=== PATIENT | female | born 1965 | race Caucasian/White ===

== ENCOUNTER 2016-11-04 10:38 | Emergency (ER) | payer OTHER ==
[2016-11-04 10:50] VITALS: BP 119/77
--- NOTE | 2016-11-04 11:13 | ED Physician Documentation ---
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 - Present Medications Home Medications: Ambulatory Orders Medication Instructions Recorded Confirmed Minocycline [Minocycline HCl] 100 mg PO DAILY 06/17/13 11/04/16 Acyclovir 0 mg DAILY 11/04/16 11/04/16 - Allergies Allergies/Adverse Reactions: Allergies Allergy/AdvReac Type Severity Reaction Status Date / Time Sulfa (Sulfonamide Allergy Rash Verified 11/04/16 10:48 Antibiotics) - Social History Does the pt smoke?: No Smoking Status: Never smoker Does the pt drink ETOH?: Yes Does the pt have substance abuse?: No PD ED PE NORMAL - Vitals Vital signs reviewed: Yes - Extremities Extremities: Other (distal 5th MT mild TTP, prox L 5th toe TTP and bruised, less tender distal toe, MSV intact) Results - Vitals Vitals: Vital Signs - 24 hr 11/04/16 10:42 Temperature 36.9 C Heart Rate 81 Respiratory 18 Rate Blood Pressure 119/77 O2 Saturation 100 Oxygen O2 Source Room air - Rads (name of study) toes Radiology: See rad report (prox 5th toe fx) Departure - Departure Disposition: 01 Home, Self Care Clinical Impression: Toe fracture, left Qualifiers: Encounter type: initial encounter Toe: unspecified toe Fracture type: closed Fracture alignment: nondisplaced Qualified Code(s): S92.912A - Unspecified fracture of left toe(s), initial encounter for closed fracture Condition: Good Instructions: ED Fx Toe Closed Follow-Up: Larisa Remy PA-C [Primary Care Provider] - Comments: Your did break your toe. Recommend arturo taping the next toe and using crutches to relieve the weight bearing stress. Motrin and ice as needed for the pain
--- NOTE | 2016-11-04 13:25 | XRAY Preliminary Report ---
Exam: XR Foot 3 View LT IMPRESSION: Fifth proximal phalangeal fracture. [facility] SITE ID: [id number]
--- NOTE | 2016-11-04 13:43 | XRAY Report ---
EXAM: LEFT FIFTH TOE RADIOGRAPHY EXAM DATE: 11/04/2016 12:12 PM. CLINICAL HISTORY: Left proximal fifth toe and distal fifth metatarsal injury. COMPARISON: None. TECHNIQUE: 4 views. FINDINGS: Bones: Acute oblique fracture involving the proximal half fifth proximal phalanx with 1 mm distractio n, no angulation. Joints: Normal. No subluxations. Soft Tissues: Edema adjacent to the fracture. IMPRESSION: Fifth proximal phalangeal fracture. [facility] Referring Provider Line: [phone] SITE ID: [id number]
== END 2016-11-04 13:56 | disposition home or self-care (01) ==
LOC: ED 10:38
DX: S92.912A Unspecified fracture of left toe(s), initial encounter for closed fracture (principal); W22.8XXA Striking against or struck by other objects, initial encounter; Y99.0 Civilian activity done for income or pay
CPT/HCPCS: 1040M; 99283

== ENCOUNTER 2018-03-11 07:38 | Outpatient (CLI) | payer OTHER ==
[2018-03-11 07:59] LABS: BASOPHILS # (AUTO) 0.1 10^3/uL (0.0-0.1); EOSINOPHILS # (AUTO) 0.2 10^3/uL (0.0-0.7); EOSINOPHILS % (AUTO) 2.9 %; HGB - HEMOGLOBIN 13.6 g/dL (12.0-16.0); LYMPHOCYTES # (AUTO) 2.2 10^3/uL (1.5-3.5); LYMPHOCYTES % (AUTO) 35.6 %; MEAN CORPUSCULAR HEMOGLOBIN 30.1 pg (27.0-31.0); MEAN CORPUSCULAR HGB CONC 33.2 g/dL (32.0-36.0); MEAN CORPUSCULAR VOLUME 90.9 fL (81.0-99.0); MEAN PLATELET VOLUME 7.3 fL (7.9-10.8); MONOCYTES # (AUTO) 0.5 10^3/uL (0.0-1.0); MONOCYTES % (AUTO) 8.1 %; NEUTROPHILS # (AUTO) 3.1 10^3/uL (1.5-6.6); NEUTROPHILS % (AUTO) 51.4 %; PLT - PLATELET COUNT 424 10^3/uL (130-450); RED BLOOD COUNT 4.52 10^6/uL (4.20-5.40); RED CELL DISTRIBUTION WIDTH 13.5 % (12.0-15.0); WHITE BLOOD COUNT 6.1 x10^3/uL (4.8-10.8)
[2018-03-11 08:13] LABS: CHOL/HDL RATIO 3.2 (<4.4); CHOLESTEROL 267 mg/dL; GLUCOSE,FASTING 95 mg/dL (70-100); HDL CHOLESTEROL 84 mg/dL; LDL CHOLESTEROL,CALCULATED 170 mg/dL; VLDL CHOLESTEROL 13 mg/dL
== END 2018-03-11 07:39 | disposition home or self-care (01) ==
LOC: LAB 07:38
PROVIDERS: ATTEND Registered Nurse
DX: Z01.419 Encounter for gynecological examination (general) (routine) without abnormal findings (principal)
CPT/HCPCS: 36415; 80061; 82947; 83721; 84443; 85025

== ENCOUNTER 2018-11-08 11:02 | Emergency (ER) | payer OTHER ==
[2018-11-08] MEDS ORDERED: ASPIRIN CHEW 81 MG TABLET PO STA (11:41)
--- NOTE | 2018-11-08 11:43 | ED Physician Documentation ---
History of Present Illness - Stated complaint Stated Complaint: CHEST TIGHTENING/LT SIDE NUMBNESS - Chief complaint Chief Complaint: Cardiac - Additonal information Additional information: This is a 53-year-old female with a history of hyperlipidemia who presents with some chest discomfort. Patient states that last night around 1 AM she woke up and she had some chest discomfort on the left lateral chest, which was pressure- like. She also has some tingling down her left arm. She denies shortness of breath, cough, fever. She denies pleuritic pain or pain when she breathes in deeply. She is never had any cardiac history, she has never had a stress test or catheterization. No leg swelling, no hemoptysis. She is not diabetic, is a non-smoker, denies family history of cardiac disease and age less than 65. The pain is currently mild in severity, and worse with certain movements. She has felt that her left trapezius has been tight lately. Review of Systems Constitutional: denies: Fever Cardiac: reports: Chest pain / pressure. 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 - Present Medications Home Medications: Ambulatory Orders Medication Instructions Recorded Confirmed Minocycline [Minocycline HCl] 100 mg PO DAILY 06/17/13 11/04/16 RX: Acyclovir 0 mg DAILY 11/04/16 11/04/16 - Allergies Allergies/Adverse Reactions: Allergies Allergy/AdvReac Type Severity Reaction Status Date / Time Sulfa (Sulfonamide Allergy Rash Verified 11/08/18 11:16 Antibiotics) - Social History Does the pt smoke?: No Smoking Status: Never smoker Does the pt drink ETOH?: Yes Does the pt have substance abuse?: No PD ED PE NORMAL - Vitals Vital signs reviewed: Yes - General General: Alert and oriented X 3, No acute distress - HEENT HEENT: PERRL - Neck Neck: Supple, no meningeal sign, Other (Mild left trapezius tenderness to palpation. No midline tenderness.) - Cardiac Cardiac: RRR, No murmur - Respiratory Respiratory: Clear bilaterally - Abdomen Abdomen: Soft, Non tender, Non distended - Derm Derm: Warm and dry - Extremities Extremities: No deformity, Other (SILT over Bilateral lower extremities. 5 out of 5 strength with Bilateral hand squeeze, finger abduction, wrist extension) - Neuro Neuro: Alert and oriented X 3 - Psych Psych: Normal mood, Normal affect Results - Vitals Vitals: Vital Signs - 24 hr 11/08/18 11/08/18 11/08/18 11:08 11:19 13:13 Temperature 37.1 C 37.2 C Heart Rate 90 90 88 Respiratory 20 20 18 Rate Blood Pressure 121/86 H 121/86 H 115/81 H O2 Saturation 100 100 98 Oxygen O2 Source Room air - EKG (time done) 11:06 Other comments: Other comments (Rate 89, sinus rhythm, normal axis. No St segment elevation or depression, no abnormal T wave inversion. intervals within normal limits) - Labs Labs: Laboratory Tests 11/08/18 11/08/18 11/08/18 11:30 11:30 11:30 WBC 7.1 RBC 4.16 L Hgb 12.7 Hct 38.5 MCV 92.5 MCH 30.5 MCHC 33.0 RDW 12.7 Plt Count 390 MPV 9.4 Neut # (Auto) 4.4 Lymph # (Auto) 2.0 [place] # (Auto) 0.5 Eos # (Auto) 0.1 Baso # (Auto) 0.1 Absolute Nucleated RBC 0.00 Nucleated RBC % 0.0 Sodium 142 Potassium 3.9 Chloride 105 Carbon Dioxide 24 Anion Gap 13.0 BUN 10 Creatinine 0.7 Estimated GFR (MDRD) 87 L Glucose 103 H Calcium 9.4 Total Bilirubin 0.5 AST 21 ALT 19 Alkaline Phosphatase 40 L Troponin I < 0.04 Total Protein 7.3 Albumin 4.5 Globulin 2.8 Albumin/Globulin Ratio 1.6 Lipase 31 Serum HCG, Qual 11/08/18 11:30 WBC RBC Hgb Hct MCV MCH MCHC RDW Plt Count MPV Neut # (Auto) Lymph # (Auto) [place] # (Auto) Eos # (Auto) Baso # (Auto) Absolute Nucleated RBC Nucleated RBC % Sodium Potassium Chloride Carbon Dioxide Anion Gap BUN Creatinine Estimated GFR (MDRD) Glucose Calcium Total Bilirubin AST ALT Alkaline Phosphatase Troponin I Total Protein Albumin Globulin Albumin/Globulin Ratio Lipase Serum HCG, Qual NEGATIVE PD MEDICAL DECISION MAKING - ED course Complexity details: considered differential (ACS, MSK pain, PE, PNA, pneumothorax, effusion, costochondritis) ED course: ON exam patient is well-appearing. EKG shows no signs of ischemia or dysrhythmia. Labs were drawn and CBC, CMP, HCG, troponin, and high sensitivity troponin unremarkable. CXR unremarkable. Given her symptoms have been ongoing for >6 hours, the negative high-sensitivity troponin and unremarkable EKG makes ACS high unlikely. HEART score is H=1, E=1, A=1, R=1, T=0, total =3, correlating to low risk. PE was considered however she has no tachycardia, leg swelling, hx of blood clots, pleuritic pain or shortness of breath, no immobilization, and the characteristic of her pain makes PE very unlikely. I discussed it is unclear what the cause of her pain is, but she should follow closely with her PCP and return to the ED with any new or worsening symptoms. It is possible MSK pain is contributing given her trapezius tenderness. Pt agreed and was discharged home. Departure - Departure Disposition: 01 Home, Self Care Clinical Impression: Chest pain Qualifiers: Chest pain type: unspecified Qualified Code(s): R07.9 - Chest pain, unspecified Condition: Good Instructions: ED Chest Pain [facility] Follow-Up: Fadia Quigley PA-C [Primary Care Provider] - Comments: You were seen today for chest pain. We do not see an obvious cause of your chest pain on labs, EKG, or chest x-ray. You can take [id number] pain control, and please follow closely with your primary care provider. If you develop new or worsening symptoms including worsening chest pain, shortness of breath, fever, please return to the emergency department. Discharge Date/Time: 11/08/18 13:14
[2018-11-08 11:54] LABS: BASOPHILS # (AUTO) 0.1 10^3/uL (0.0-0.1); BASOPHILS % (AUTO) 1.1 %; EOSINOPHILS # (AUTO) 0.1 10^3/uL (0.0-0.7); EOSINOPHILS % (AUTO) 1.7 %; HGB - HEMOGLOBIN 12.7 g/dL (12.0-16.0); LYMPHOCYTES % (AUTO) 28.6 %; MEAN CORPUSCULAR HEMOGLOBIN 30.5 pg (27.0-31.0); MEAN CORPUSCULAR VOLUME 92.5 fL (81.0-99.0); MEAN PLATELET VOLUME 9.4 fL (7.9-10.8); MONOCYTES # (AUTO) 0.5 10^3/uL (0.0-1.0); MONOCYTES % (AUTO) 6.5 %; NEUTROPHILS # (AUTO) 4.4 10^3/uL (1.5-6.6); NEUTROPHILS % (AUTO) 61.8 %; PLT - PLATELET COUNT 390 10^3/uL (130-450); RED BLOOD COUNT 4.16 10^6/uL (4.20-5.40); RED CELL DISTRIBUTION WIDTH 12.7 % (12.0-15.0); WHITE BLOOD COUNT 7.1 x10^3/uL (4.8-10.8)
[2018-11-08 12:14] LABS: ALBUMIN 4.5 g/dL (3.2-5.5); ALBUMIN/GLOBULIN RATIO 1.6 (1.0-2.2); BILIRUBIN,TOTAL 0.5 mg/dL (0.2-1.0); CALCIUM 9.4 mg/dL (8.5-10.3); CREATININE 0.7 mg/dL (0.4-1.0); TOTAL PROTEIN 7.3 g/dL (6.7-8.2)
--- NOTE | 2018-11-08 12:15 | XRAY Report ---
Reason: Chest pain Procedure Date: 11/08/2018 Accession Number: [id number] / [id number] Procedure: XR - Chest 2 View X-Ray CPT Code: 05325 FULL RESULT: EXAM: CHEST RADIOGRAPHY EXAM DATE: 11/08/2018 12:00 PM. CLINICAL HISTORY: Chest pain. Chest discomfort and pressure with mild tingling down left arm. COMPARISON: None. TECHNIQUE: 2 views. FINDINGS: Lungs/Pleura: No focal opacities evident. No pleural effusion. No pneumothorax. Normal volumes. Mediastinum: Heart and mediastinal contours are unremarkable. Other: None. IMPRESSION: Normal 2-view chest radiography. [facility]
[2018-11-08 12:20] LABS: HCG,QUALITATIVE BLOOD NEGATIVE
[2018-11-08 13:14] VITALS: BP 115/81
== END 2018-11-08 13:14 | disposition home or self-care (01) ==
LOC: ED 11:02
DX: R07.89 Other chest pain (principal); E78.5 Hyperlipidemia, unspecified
CPT/HCPCS: 36415; 71046; 80053; 83690; 84484; 84703; 85025; 93005; 99284; A9270

== ENCOUNTER 2019-04-14 09:08 | Outpatient (CLI) | payer OTHER ==
[2019-04-14 09:32] LABS: BASOPHILS # (AUTO) 0.1 10^3/uL (0.0-0.1); BASOPHILS % (AUTO) 1.2 %; EOSINOPHILS # (AUTO) 0.1 10^3/uL (0.0-0.7); LYMPHOCYTES # (AUTO) 2.1 10^3/uL (1.5-3.5); LYMPHOCYTES % (AUTO) 25.2 %; MEAN CORPUSCULAR HEMOGLOBIN 30.4 pg (27.0-31.0); MEAN CORPUSCULAR HGB CONC 32.8 g/dL (32.0-36.0); MEAN CORPUSCULAR VOLUME 92.7 fL (81.0-99.0); MEAN PLATELET VOLUME 9.1 fL (7.9-10.8); MONOCYTES # (AUTO) 0.6 10^3/uL (0.0-1.0); MONOCYTES % (AUTO) 6.9 %; NEUTROPHILS # (AUTO) 5.3 10^3/uL (1.5-6.6); NEUTROPHILS % (AUTO) 65.2 %; PLT - PLATELET COUNT 425 10^3/uL (130-450); RED BLOOD COUNT 4.27 10^6/uL (4.20-5.40); RED CELL DISTRIBUTION WIDTH 12.7 % (12.0-15.0); WHITE BLOOD COUNT 8.1 x10^3/uL (4.8-10.8)
[2019-04-14 09:38] LABS: ALBUMIN 4.8 g/dL (3.2-5.5); ALBUMIN/GLOBULIN RATIO 1.5 (1.0-2.2); BILIRUBIN,TOTAL 1.2 mg/dL (0.2-1.0); CALCIUM 9.5 mg/dL (8.5-10.3); CREATININE 0.8 mg/dL (0.4-1.0)
== END 2019-04-14 09:09 | disposition home or self-care (01) ==
LOC: LAB 09:08
PROVIDERS: ATTEND Surgery Surgery of the Hand
DX: Z01.818 Encounter for other preprocedural examination (principal)
CPT/HCPCS: 36415; 80053; 85025

== ENCOUNTER 2019-12-29 08:34 | Outpatient (CLI) | payer OTHER ==
--- NOTE | 2019-12-29 09:30 | XRAY Report ---
PROCEDURE: Lumbar Spine 2 View INDICATIONS: BLE NEUROPATHY,HX OF LUMBAR DISC PROTRUSION TECHNIQUE: 2 views of the lumbar spine were acquired. COMPARISON: None. FINDINGS: No fracture. Scattered multilevel endplate spurring and diffuse facet arthropathy. Trace anterolisthesis of L3 on L4. Mild narrowing of the L3-L4 and L4-L5 disc spaces. Mild dextrocurvature. Soft tissues: Overlying bowel gas pattern is normal. No suspicious soft tissue calcifications. IMPRESSION: Mild dextrocurvature and mild multilevel spondylosis and facet arthropathy. Trace anterolisthesis of L3 on L4. Reviewed by: Rolo Kumar MD on 12/29/2019 9:29 AM PDT Approved by: Rolo Kumar MD on 12/29/2019 9:29 AM PDT Station ID: [id number]
== END 2019-12-29 08:35 | disposition home or self-care (01) ==
LOC: DI 08:34
PROVIDERS: ATTEND Physician Assistant Medical
DX: M47.816 Spondylosis without myelopathy or radiculopathy, lumbar region (principal); M43.16 Spondylolisthesis, lumbar region
CPT/HCPCS: 72100

== ENCOUNTER 2020-02-20 14:27 | Emergency (ER) | payer OTHER ==
--- NOTE | 2020-02-20 15:01 | ED Physician Documentation ---
PD HPI SYNCOPE - Stated complaint Stated Complaint: DIZZY/LOW BP - Chief complaint Chief Complaint: Cardiac - History obtained from History obtained from: Patient - History of Present Illness Timing - onset: How many days ago (2) Duration: Seconds Preceding symptoms: Light headed, Generalized weakness. No: Headache, Chest pain, Palpitations Associated symptoms: Other (vertigo). No: Headache, Chest pain, Abdominal pain Contributing factors: Just stood up (she has noted feeling of dizziness but also lightheaded with getting up quickly the past couple of days. Denies fever, illness, change in PO intake (though says "I don't really drink as much water as I should"). No med changes. [place] dizzy and lightheaded for seconds/minute or so. Took BP and was 102). No: Recent med change, Decreased PO intake Injury occurred: No: Fell, Head injury Similar symptoms before: Has not had sx before Review of Systems Constitutional: denies: Fever, Chills Eyes: denies: Loss of vision, Decreased vision Ears: denies: Loss of hearing (but has feeling of "popping" in left ear at times the past week.) Nose: reports: Congestion (some feeling of congestion ongoing, and used to take allergy meds, but stopped a month ago as was feeling okay.). 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 - Present Medications Home Medications: Ambulatory Orders Medication Instructions Recorded Confirmed Cetirizine [ZyrTEC] 10 mg PO DAILY #15 tablet 02/20/20 Cholecalciferol [Vitamin D3] 50 mcg PO DAILY 02/20/20 02/20/20 Multivitamin 1 each PO DAILY 02/20/20 02/20/20 Zolpidem Tartrate [Ambien Cr] 6.25 mg ORAL HS 02/20/20 02/20/20 - Allergies Allergies/Adverse Reactions: Allergies Allergy/AdvReac Type Severity Reaction Status Date / Time Sulfa (Sulfonamide Allergy Rash Verified 02/20/20 14:30 Antibiotics) - Social History Does the pt smoke?: No Smoking Status: Never smoker Does the pt drink ETOH?: Yes Does the pt have substance abuse?: No PD ED PE NORMAL - Vitals Vital signs reviewed: Yes - General General: Alert and oriented X 3, No acute distress, Well developed/nourished - HEENT HEENT: Ears normal (there is some fluid appearance behind left TM without redness. Right TM appears okay. ), Moist mucous membranes, Pharynx benign - Neck Neck: Supple, no meningeal sign, No adenopathy - Cardiac Cardiac: RRR (mild tachycardia but regular. Normal BP here. Sats are good and no dyspnea. ), No murmur - Respiratory Respiratory: Clear bilaterally - Abdomen Abdomen: Soft, Non tender - Back Back: No CVA TTP - Derm Derm: Normal color, Warm and dry - Extremities Extremities: No tenderness to palpate, Normal ROM s pain, No edema, No calf tenderness / cord - Neuro Neuro: Alert and oriented X 3, No motor deficit, No sensory deficit, Normal speech Eye Opening: Spontaneous Motor: Obeys Commands Verbal: Oriented GCS Score: 15 Results - Vitals Vitals: Vital Signs - 24 hr 02/20/20 02/20/20 02/20/20 14:30 14:41 16:29 Temperature 36.5 C 37 C 36.9 C Heart Rate 102 H 108 H 76 Respiratory 16 17 18 Rate Blood Pressure 165/87 H 118/82 H 110/82 H O2 Saturation 100 100 100 Oxygen O2 Source Room air - EKG (time done) 15:10 Rate: Rate (enter#) (84) Rhythm: NSR [place]: Normal Intervals: Normal NM. No: Prolonged QT QRS: Normal Ischemia: Normal ST segments. No: ST elevation c/w ischemia, ST depression - Labs Labs: Laboratory Tests 02/20/20 02/20/20 02/20/20 15:25 15:25 15:25 WBC 6.5 RBC 4.13 L Hgb 12.6 Hct 38.2 MCV 92.5 MCH 30.5 MCHC 33.0 RDW 12.6 Plt Count 416 MPV 9.5 Neut # (Auto) 3.0 Lymph # (Auto) 2.6 [place] # (Auto) 0.6 Eos # (Auto) 0.2 Baso # (Auto) 0.1 Absolute Nucleated RBC 0.00 Nucleated RBC % 0.0 Sodium 139 Potassium 4.0 Chloride 104 Carbon Dioxide 27 Anion Gap 8.0 BUN 12 Creatinine 0.6 Estimated GFR (MDRD) 104 Glucose 97 Calcium 9.4 Magnesium 2.3 Total Bilirubin 0.5 AST 18 ALT 19 Alkaline Phosphatase 53 Troponin I High Sens < 2.3 L Total Protein 7.6 Albumin 4.7 Globulin 2.9 Albumin/Globulin Ratio 1.6 Lipase 38 TSH 02/20/20 15:25 WBC RBC Hgb Hct MCV MCH MCHC RDW Plt Count MPV Neut # (Auto) Lymph # (Auto) [place] # (Auto) Eos # (Auto) Baso # (Auto) Absolute Nucleated RBC Nucleated RBC % Sodium Potassium Chloride Carbon Dioxide Anion Gap BUN Creatinine Estimated GFR (MDRD) Glucose Calcium Magnesium Total Bilirubin AST ALT Alkaline Phosphatase Troponin I High Sens Total Protein Albumin Globulin Albumin/Globulin Ratio Lipase TSH 1.74 - Rads (name of study) chest xray Radiology: Prelim report reviewed (no acute process), See rad report PD MEDICAL DECISION MAKING - ED course Complexity details: reviewed results, re-evaluated patient (she is feeling okay here without positional dizziness. Normal vitals. ), considered differential (has different components to it with a vertigo component and popping in left ear and worse with some head movement. But does not explain the lightheaded component and the transient low BP at home, unless it was a vagal response to the vertigo. Labs and ECG are normal. rhythm and BP normal here. HR up), d/w patient Departure - Departure Disposition: 01 Home, Self Care Clinical Impression: Transient hypotension, Dizziness Condition: Stable Record reviewed to determine appropriate education?: Yes Instructions: ED Near Syncope Unkn Follow-Up: MARC MARTIN MD [Primary Care Provider] - Prescriptions: Cetirizine [ZyrTEC] 10 mg PO DAILY #15 tablet Comments: Your heart rhythm and EKG as well as blood tests of electrolytes kidney function and a marker for any heart injury, are all normal. There is not a obvious significant cause for the low blood pressure episode you had. Consider just under hydration as a possibility be sure to drink reasonable amount of extra fluids over the next few days. Regarding the lightheaded/dizzy symptoms you had, some of that can be from the low blood pressure but it also sounds like some may be from the inner ear causing some vertigo. I would suggest a mild antihistamine of cetirizine daily for the next week or 2 to see if there is just some extra fluid buildup in the middle and inner ear. Recheck if not improved well over the next few days and return if you have worsening or more frequent episodes or other symptoms. Discharge Date/Time: 02/20/20 16:49
[2020-02-20] MEDS ORDERED: SODIUM CHLORIDE 0.9% 1,000 ML IV STA (15:02)
--- NOTE | 2020-02-20 15:39 | XRAY Report ---
PROCEDURE: Chest 1 View X-Ray INDICATIONS: Chest Pain TECHNIQUE: One view of the chest was acquired. COMPARISON: Chest x-ray 11/08/2018 FINDINGS: Surgical changes and devices: None. Lungs and pleura: No pleural effusions or pneumothorax. Lungs are clear. Mediastinum: Mediastinal contours appear normal. Heart size is normal. Bones and chest wall: No suspicious bony lesions. Overlying soft tissues appear unremarkable. IMPRESSION: No acute pulmonary process. Reviewed by: Crissy Benites MD on 02/20/2020 3:37 PM [facility] Approved by: Crissy Benites MD on 02/20/2020 3:37 PM [facility] Station ID: [id number]
[2020-02-20 15:59] LABS: BASOPHILS # (AUTO) 0.1 10^3/uL (0.0-0.1); BASOPHILS % (AUTO) 1.4 %; EOSINOPHILS # (AUTO) 0.2 10^3/uL (0.0-0.7); EOSINOPHILS % (AUTO) 2.5 %; HGB - HEMOGLOBIN 12.6 g/dL (12.0-16.0); LYMPHOCYTES # (AUTO) 2.6 10^3/uL (1.5-3.5); LYMPHOCYTES % (AUTO) 40.5 %; MEAN CORPUSCULAR HEMOGLOBIN 30.5 pg (27.0-31.0); MEAN CORPUSCULAR VOLUME 92.5 fL (81.0-99.0); MEAN PLATELET VOLUME 9.5 fL (7.9-10.8); MONOCYTES # (AUTO) 0.6 10^3/uL (0.0-1.0); MONOCYTES % (AUTO) 8.9 %; NEUTROPHILS % (AUTO) 46.2 %; PLT - PLATELET COUNT 416 10^3/uL (130-450); RED BLOOD COUNT 4.13 10^6/uL (4.20-5.40); RED CELL DISTRIBUTION WIDTH 12.6 % (12.0-15.0); WHITE BLOOD COUNT 6.5 x10^3/uL (4.8-10.8)
[2020-02-20 16:13] LABS: ALBUMIN 4.7 g/dL (3.2-5.5); ALBUMIN/GLOBULIN RATIO 1.6 (1.0-2.2); BILIRUBIN,TOTAL 0.5 mg/dL (0.2-1.0); CALCIUM 9.4 mg/dL (8.5-10.3); CREATININE 0.6 mg/dL (0.4-1.0); MAGNESIUM 2.3 mg/dL (1.7-2.8); TOTAL PROTEIN 7.6 g/dL (6.7-8.2)
[2020-02-20 16:30] VITALS: BP 110/82
[2020-02-20] MEDS ORDERED: MECLIZINE 12.5 MG TABLET PO STA (16:30)
== END 2020-02-20 16:49 | disposition home or self-care (01) ==
LOC: ED 14:27
DX: I95.9 Hypotension, unspecified (principal)
CPT/HCPCS: 36415; 71045; 83690; 83735; 84484; 93005; 96360; 99284; A9270; 80053; 84443; 85025

== ENCOUNTER 2021-06-20 08:00 | Outpatient (CLI) | payer OTHER ==
--- NOTE | 2021-06-20 08:25 | XRAY Report ---
PROCEDURE: Hip w/Pelvis 2-3V RT INDICATIONS: HIP JOINT PAIN, RIGHT TECHNIQUE: AP pelvis with lateral view(s) of the right hip(s). COMPARISON: None. FINDINGS: BONES/JOINTS: No acute, displaced fracture. No widening of the pubic symphysis. The sacroiliac joints are symmetric. The femoral heads are normal ly seated within the acetabulum. SOFT TISSUES: Calcific density adjacent to the right greater trochanter, most consistent with calcifi ed tendinopathy/bursitis. IMPRESSION: 1.No acute osseous abnormality of the right hip. 2.Right trochanteric calcific tendinopathy/bursitis. Reviewed by: Jason Whatley MD on 06/20/2021 8:24 AM PDT Approved by: Jason Whatley MD on 06/20/2021 8:24 AM PDT Station ID: [id number]
== END 2021-06-20 23:59 | disposition home or self-care (01) ==
LOC: DI.N 08:00
PROVIDERS: ATTEND Family Medicine
DX: M70.61 Trochanteric bursitis, right hip (principal)

== ENCOUNTER 2021-10-28 10:53 | Emergency (ER) | payer OTHER ==
[2021-10-28 11:00] VITALS: BP 135/95
== END 2021-10-28 11:25 | disposition left against medical advice (07) ==
LOC: ED 10:53
DX: Z53.21 Procedure and treatment not carried out due to patient leaving prior to being seen by health care provider (principal)

== ENCOUNTER 2022-10-12 08:51 | Outpatient (CLI) | payer OTHER ==
--- NOTE | 2022-10-12 09:34 | ONCOLOGY/HEMATOLOGY VISIT ---
HEME/ONC PROGRESS NOTE: cc: Cameron Price MD; Carin Rahman MD ONCOLOGY HISTORY: 1. Stage IIB left breast invasive ductal carcinoma with lobular differentiation, G2/3, [id number], ER70% PR70% HER2 negative, Ki-67 25%. a. Lumpectomy/SLN on 05/15/22. Oncotype DX score 21. with b/l Breast implant removal. b. Adjuvant radiation therapy done in mid 09/2022 c. Letrozole therapy since her . d. Abemaciclib 150mg BID 09/28/22; ASSESSMENT/PLAN: 1. Stage II left breast cancer. Recovered well from surgery and radiation therapy. Also tolerating letrozole well for minimum 5-year course. a. on abemaciclib 150 mg twice a day for a 2-year course. Normal EKG. Having some diarrhea 2-5/day from the medication. Not using Imodium which was encouraged. b. Return in 4-6 weeks 2. Treatment related toxicities. a. Diarrhea/nausea from above medication. Encouraged her to add in Imodium as needed. b. Leukopenia and anemia. We will check vitamin and iron level at next blood draw 3. Hypokalemia. Resolved 4. Osteopenia. Last DEXA scan in 03/2022 showed T score at the femoral neck at - 1.1. a. Continue calcium vitamin D supplement. We will discuss about Zometa infusion every 6 months for the next 5 years. HISTORY OF CURRENT ILLNESS/REVIEW OF SYSTEMS: Patient is here for ongoing care regarding above issues. Started Amebaciclib 2 weeks ago Here for toxicity check. Loose stool 25 episodes per day of the last course so. None today so far. Nausea not needing any medications. This is a 57 years old postmenopausal female who initially presented with left breast pain around 01/2022. Subsequently she underwent diagnostic mammography and ultrasound which showed a 2.6 cm irregular mass at the upper outer quadrant of the left breast. Biopsy was performed on to confirm invasive breast cancer. She underwent further work-up and eventually had left breast lumpectomy with sentinel lymph node biopsy With bilateral implants removal 05/15/22. Final pathology as reviewed above. She has completed radiation therapy recently. She is also a transfer for of care to [facility] since he lives in [place]. I am seeing her for the first time. PMF SOCIAL HISTORY: GERD. Anemia. Insomnia. Hysterectomy in 2017.Anxiety. . is good.Former smoker stopped in 2002. Drinks alcohol 5 drinks per week. Father had lung cancer. PHYSICAL EXAM: Weight is 71 kg. BP 107/67 HEENT; no jaundice, Lung; Heart; BREAST: bilateral NOT examined; Abdomen; Extremity; no clubbing, no peripheral edema, no cyanosis, Skin. No new rash. No petechia or purpura. Lymph nodes: EKG done today. Normal Clinical Data: Allergies Sulfa (Sulfonamide Antibiotics) Allergy (Verified 02/20/20 14:30) Rash Home Medications Cholecalciferol [Vitamin D3] 50 mcg PO DAILY 02/20/20 [History Last Taken Unknown] Multivitamin 1 each PO DAILY 02/20/20 [History Last Taken Unknown] Zolpidem Tartrate [Ambien Cr] 5 mg ORAL HS 02/20/20 [History Last Taken Unknown] LORazepam [Ativan] 1 mg PO PRN PRN 09/28/22 [History Last Taken Unknown] Letrozole 2.5 mg PO DAILY 09/28/22 [History Last Taken Unknown] Potassium Citrate [Potassium] 99 mg PO PRN PRN 09/28/22 [History Last Taken Unknown]
== END 2022-10-12 08:52 | disposition home or self-care (01) ==
LOC: RT 08:51
PROVIDERS: ATTEND Internal Medicine Hematology & Oncology
DX: C50.412 Malignant neoplasm of upper-outer quadrant of left female breast (principal)
CPT/HCPCS: 93005

== ENCOUNTER 2023-06-28 08:44 | Outpatient (CLI) | payer OTHER ==
[2023-06-28 08:52] LABS: BASOPHILS # (AUTO) 0.1 10^3/uL (0.0-0.1); EOSINOPHILS # (AUTO) 0.3 10^3/uL (0.0-0.7); EOSINOPHILS % (AUTO) 5.1 %; HCT - HEMATOCRIT 38.8 % (37.0-47.0); HGB - HEMOGLOBIN 12.4 g/dL (12.0-16.0); LYMPHOCYTES # (AUTO) 1.4 10^3/uL (1.5-3.5); LYMPHOCYTES % (AUTO) 24.1 %; MEAN CORPUSCULAR HEMOGLOBIN 31.1 pg (27.0-31.0); MEAN CORPUSCULAR VOLUME 97.2 fL (81.0-99.0); MEAN PLATELET VOLUME 9.2 fL (7.9-10.8); MONOCYTES # (AUTO) 0.6 10^3/uL (0.0-1.0); MONOCYTES % (AUTO) 10.8 %; NEUTROPHILS # (AUTO) 3.4 10^3/uL (1.5-6.6); NEUTROPHILS % (AUTO) 57.7 %; PLT - PLATELET COUNT 329 10^3/uL (130-450); RED BLOOD COUNT 3.99 10^6/uL (4.20-5.40); RED CELL DISTRIBUTION WIDTH 12.4 % (12.0-15.0); WHITE BLOOD COUNT 5.9 x10^3/uL (4.8-10.8)
[2023-06-28 09:14] LABS: ALBUMIN 4.4 g/dL (3.2-5.5); ALBUMIN/GLOBULIN RATIO 1.7 (1.0-2.2); BILIRUBIN,TOTAL 0.6 mg/dL (0.2-1.0); CALCIUM 9.7 mg/dL (8.5-10.3); CREATININE 0.9 mg/dL (0.6-1.3); POTASSIUM 4.1 mmol/L (3.5-4.5)
== END 2023-06-28 08:45 | disposition home or self-care (01) ==
LOC: LAB 08:44
PROVIDERS: ATTEND Internal Medicine
DX: C50.312 Malignant neoplasm of lower-inner quadrant of left female breast (principal); Z17.0 Estrogen receptor positive status [ER+]
CPT/HCPCS: 36415; 80053; 85025